=== PATIENT | female | born 1940 | race Caucasian/White ===

== ENCOUNTER 2022-01-14 04:59 | Emergency (ER) | payer MEDICARE, OTHER, BC ==
[~2022-01-14] VITALS: Ht 162.6 cm; Wt 58.1 kg
[2022-01-14] MEDS ORDERED: AMLO10 (05:24)
[2022-01-14] MEDS ORDERED: FURO20 PO (05:25)
[2022-01-14] MEDS ORDERED: Aspir 8181 MG PO (05:25)
[2022-01-14] MEDS ORDERED: LOPE2C PO (05:26)
[2022-01-14] MEDS ORDERED: Isosorbide Mono30 MG PO (05:26)
[2022-01-14] MEDS ORDERED: METF500 PO (05:27)
[2022-01-14] MEDS ORDERED: LOSA50 (05:27)
[2022-01-14] MEDS ORDERED: LOVA40 PO (05:27)
[2022-01-14] MEDS ORDERED: METO50ER (05:28)
[2022-01-14] MEDS ORDERED: PANT40 PO (05:28)
[2022-01-22] MEDS ORDERED: IBUP800 PO (17:07)
[2022-01-26] MEDS ORDERED: CEPH500 PO (15:43)
[2022-05-05] MEDS ORDERED: TRAZ100 PO (04:50)
[2022-06-24] MEDS ORDERED: METF500 PO (08:56)
[2022-06-24] MEDS ORDERED: Robaxin750 MG PO (14:06)
== END 2022-01-14 08:35 | disposition home or self-care (01) ==
LOC: ER 04:59
DX: M25.551 Pain in right hip (principal); G89.29 Other chronic pain; Z88.2 Allergy status to sulfonamides; Z88.8 Allergy status to other drugs, medicaments and biological substances; Z79.82 Long term (current) use of aspirin; Z79.899 Other long term (current) drug therapy; Z79.84 Long term (current) use of oral hypoglycemic drugs
CPT/HCPCS: 51701; 51798; 73502; 99284-25

== ENCOUNTER 2022-01-24 16:09 | Emergency (ER) | payer BC, OTHER ==
[~2022-01-24] VITALS: Ht 157.5 cm; Wt 58.1 kg
[~2022-01-24 16:09] MED LIST: AMLO10; Aspir 8181 MG PO; FURO20 PO; IBUP800 PO; Isosorbide Mono30 MG PO; LOPE2C PO; LOSA50; LOVA40 PO; METF500 PO; METO50ER; PANT40 PO
[2022-01-25] MEDS ORDERED: OXAYDO5 M1 PO (15:37)
[2022-01-26] MEDS ORDERED: CEPH500 PO (15:43)
== END 2022-01-24 18:02 | disposition home or self-care (01) ==
LOC: ER 16:09
DX: M25.512 Pain in left shoulder (principal); Z88.2 Allergy status to sulfonamides; Z88.8 Allergy status to other drugs, medicaments and biological substances; Z88.5 Allergy status to narcotic agent; Z79.899 Other long term (current) drug therapy; Z79.82 Long term (current) use of aspirin; Z79.84 Long term (current) use of oral hypoglycemic drugs; F03.90 Unspecified dementia, unspecified severity, without behavioral disturbance, psychotic disturbance, mood disturbance, and anxiety; E11.9 Type 2 diabetes mellitus without complications; I10 Essential (primary) hypertension; E78.5 Hyperlipidemia, unspecified
CPT/HCPCS: 71046

== ENCOUNTER 2022-01-25 14:12 | Emergency (ER) | payer MEDICARE, OTHER ==
[~2022-01-25] VITALS: Ht 162.6 cm; Wt 58.1 kg
[2022-01-25] MEDS ORDERED: OXAYDO5 M1 PO (15:37)
[2022-01-26] MEDS ORDERED: CEPH500 PO (15:43)
== END 2022-01-25 16:11 | disposition home or self-care (01) ==
LOC: ER 14:12
DX: M75.32 Calcific tendinitis of left shoulder (principal); M75.31 Calcific tendinitis of right shoulder; E11.9 Type 2 diabetes mellitus without complications; F03.90 Unspecified dementia, unspecified severity, without behavioral disturbance, psychotic disturbance, mood disturbance, and anxiety; Z79.84 Long term (current) use of oral hypoglycemic drugs; Z88.2 Allergy status to sulfonamides; Z88.5 Allergy status to narcotic agent; Z88.8 Allergy status to other drugs, medicaments and biological substances; Z79.899 Other long term (current) drug therapy; Z79.82 Long term (current) use of aspirin
CPT/HCPCS: 20610; 73010; 99283-25; J3301

== ENCOUNTER → 2022-03-09 | Outpatient (CLI) | payer MEDICARE, OTHER ==
[~2022-03-09] MED LIST changes: +CEPH500 PO; +OXAYDO5 M1 PO
[2022-03-09 17:17] LABS: BASOPHILS ABSOLUTE AUTO 0.04 K/mm3 (0.00-0.23); BASOPHILS PERCENT AUTO 0 % (0-2); EOSINOPHILS PERCENT AUTO 1 % (0-6); Hematocrit 38.3 % (33.0-51.0); Hemoglobin 12.1 g/dL (11.5-16.0); IMMATURE GRAN ABSOLUTE AUTO 0.02 K/mm3 (0.00-0.10); IMMATURE GRAN PERCENT AUTO 0 % (0-1); LYMPHOCYTES ABSOLUTE AUTO 2.51 K/mm3 (0.84-5.20); LYMPHOCYTES PERCENT AUTO 26 % (21-46); MONOCYTES ABSOLUTE AUTO 0.62 K/mm3 (0.16-1.47); MONOCYTES PERCENT AUTO 7 % (4-13); Mean Corpuscular HGB 30.6 pg (26.0-34.0); Mean Corpuscular HGB Conc 31.6 g/dL (31.5-36.5); Mean Corpuscular Volume 97 fL (80-100); Mean Platelet Volume 9.8 fL (9.1-12.4); NEUTROPHILS PERCENT AUTO 65 % (41-73); Platelet Count 397 K/mm3 (150-400); RDW Coefficient Variation 13.1 % (11.7-14.2); Red Blood Cell Count 3.95 M/mm3 (3.80-5.20); White Blood Cell Count 9.49 K/mm3 (4.00-11.30)
[2022-03-09 17:51] LABS: Albumin, Blood 3.3 g/dL (3.4-5.0); Albumin/Globulin Ratio 0.8 (0.8-1.8); Bilirubin, Total 0.2 mg/dL (0.1-1.0); Calcium, Blood 9.4 mg/dL (8.5-10.1); Creatinine, Blood 0.76 mg/dL (0.40-1.00); Globulin, Blood 4.4 g/dL (2.2-4.0); Percent Saturation 24.2 % (15.0-50.0); Potassium, Blood 4.2 mmol/L (3.5-5.5); Total Protein, Blood 7.7 g/dL (6.4-8.2)
== END | disposition home or self-care (01) ==
LOC: LAB SHORT 15:10 → LAB 15:10
PROVIDERS: Nurse Practitioner Family
DX: K92.2 Gastrointestinal hemorrhage, unspecified (principal); N17.8 Other acute kidney failure
CPT/HCPCS: 80053; 83540; 83550; 85025

== ENCOUNTER 2022-03-19 09:36 | Emergency (ER) | payer MEDICARE, OTHER ==
[~2022-03-19] VITALS: Ht 165.1 cm; Wt 58.1 kg
== END 2022-03-19 10:58 | disposition home or self-care (01) ==
LOC: ER 09:36
DX: T83.031A Leakage of indwelling urethral catheter, initial encounter (principal); F03.90 Unspecified dementia, unspecified severity, without behavioral disturbance, psychotic disturbance, mood disturbance, and anxiety; E11.9 Type 2 diabetes mellitus without complications; F41.9 Anxiety disorder, unspecified; Z79.82 Long term (current) use of aspirin; Z79.84 Long term (current) use of oral hypoglycemic drugs; Z79.899 Other long term (current) drug therapy; Y82.9 Unspecified medical devices associated with adverse incidents; Y92.9 Unspecified place or not applicable
CPT/HCPCS: 51702

== ENCOUNTER 2022-03-27 08:07 | Emergency (ER) | payer MEDICARE, OTHER ==
[~2022-03-27] VITALS: Ht 160 cm; Wt 54.4 kg
[2022-03-27] MEDS ORDERED: AMLODIPINE BESY10 MG PO (08:49)
[2022-03-27] MEDS ORDERED: Aspir 8181 MG PO (08:49)
[2022-03-27] MEDS ORDERED: CENTRUM SILVER1 EAC2 PO (08:50)
[2022-03-27] MEDS ORDERED: FERSU300 PO (08:50)
[2022-03-27] MEDS ORDERED: LOSA50 PO (08:51)
[2022-03-27] MEDS ORDERED: ISOSORBIDE MONO30 MG PO (08:51)
[2022-03-27] MEDS ORDERED: HYDROCODONE-AC1 EA18 PO (08:51)
[2022-03-27] MEDS ORDERED: FUROSEMIDE20 MG PO (08:51)
[2022-03-27] MEDS ORDERED: MAGNESIUM OXID500 MG PO (08:52)
[2022-03-27] MEDS ORDERED: METFORMIN HCL500 M2 PO (08:52)
[2022-03-27] MEDS ORDERED: LOVASTATIN40 MG PO (08:52)
[2022-03-27] MEDS ORDERED: METOPROLOL TART50 M9 PO (08:53)
[2022-03-27] MEDS ORDERED: K-Dur10 MEQ PO (08:53)
[2022-03-27] MEDS ORDERED: PANTOPRAZOLE SO40 M2 PO (08:53)
[2022-03-27 09:16] LABS: BASOPHILS ABSOLUTE AUTO 0.03 K/mm3 (0.00-0.23); BASOPHILS PERCENT AUTO 0 % (0-2); EOSINOPHILS PERCENT AUTO 1 % (0-6); Hematocrit 34.5 % (33.0-51.0); Hemoglobin 11.2 g/dL (11.5-16.0); IMMATURE GRAN ABSOLUTE AUTO 0.02 K/mm3 (0.00-0.10); IMMATURE GRAN PERCENT AUTO 0 % (0-1); LYMPHOCYTES ABSOLUTE AUTO 2.62 K/mm3 (0.84-5.20); LYMPHOCYTES PERCENT AUTO 34 % (21-46); MONOCYTES ABSOLUTE AUTO 0.54 K/mm3 (0.16-1.47); MONOCYTES PERCENT AUTO 7 % (4-13); Mean Corpuscular HGB 31.3 pg (26.0-34.0); Mean Corpuscular HGB Conc 32.5 g/dL (31.5-36.5); Mean Corpuscular Volume 96 fL (80-100); Mean Platelet Volume 9.5 fL (9.1-12.4); NEUTROPHILS PERCENT AUTO 57 % (41-73); Platelet Count 293 K/mm3 (150-400); RDW Standard Deviation 45.7 fL (35.1-46.3); Red Blood Cell Count 3.58 M/mm3 (3.80-5.20); White Blood Cell Count 7.71 K/mm3 (4.00-11.30)
[2022-03-27 09:29] LABS: Albumin/Globulin Ratio 0.8 (0.8-1.8); Bilirubin, Total 0.3 mg/dL (0.1-1.0); Bun/Creatinine Ratio 24.6 (12.0-20.0); Creatinine, Blood 0.85 mg/dL (0.40-1.00); Globulin, Blood 3.6 g/dL (2.2-4.0); Potassium, Blood 4.2 mmol/L (3.5-5.5); Total Protein, Blood 6.6 g/dL (6.4-8.2)
[2022-03-27 09:42] LABS: Source, Urine Clean Catch
[2022-03-27 09:50] LABS: Appearance, Urine Clear (Clear); Bilirubin, Urine Neg (Neg); Blood, Urine 2+ (Neg); Color, Urine Yellow (P-Yellow); Glucose Qualitative, Urine Neg (Neg); Ketones, Urine Neg (Neg); Leukocyte Esterase, Urine 2+ (Neg); Nitrite, Urine Neg (Neg); Protein, Urine Neg (Neg); Specific Gravity, Urine 1.005 (1.003-1.022); Urobilinogen, Urine NORM (Normal)
[2022-03-27 10:00] LABS: Bacteria Few /hpf; Squamous Epithelial Cells Few /hpf (Few)
[2022-03-27] MEDS ORDERED: CEFD300 PO (10:20)
== END 2022-03-27 10:59 | disposition home or self-care (01) ==
LOC: ER 08:07
PROVIDERS: Physician Assistant
DX: N39.0 Urinary tract infection, site not specified (principal); I10 Essential (primary) hypertension; E11.9 Type 2 diabetes mellitus without complications
CPT/HCPCS: 36415; 51702; 72100; 73502; 80053; 81001; 85025; J0696

== ENCOUNTER 2022-09-03 15:52 | Inpatient (IN) | payer MEDICARE, OTHER ==
[~2022-09-03] VITALS: Ht 167.6 cm; Wt 60.4 kg
[~2022-09-03 15:52] MED LIST changes: +AMLODIPINE BESY10 MG PO; +CEFD300 PO; +CENTRUM SILVER1 EAC2 PO; +FERSU300 PO; +FUROSEMIDE20 MG PO; +HYDROCODONE-AC1 EA18 PO; +ISOSORBIDE MONO30 MG PO; +K-Dur10 MEQ PO; +LOSA50 PO; +LOVASTATIN40 MG PO; +MAGNESIUM OXID500 MG PO; +METFORMIN HCL500 M2 PO; +METOPROLOL TART50 M9 PO; +PANTOPRAZOLE SO40 M2 PO; +Robaxin750 MG PO; +TRAZ100 PO
[2022-09-03] MEDS ORDERED: FURO20 PO (16:21)
[2022-09-03] MEDS ORDERED: GABA100 PO (16:22)
[2022-09-03] MEDS ORDERED: K-Dur10 MEQ (16:23)
[2022-09-03] MEDS ORDERED: TRAZ100 PO (16:24)
[2022-09-03 16:31] LABS: BASOPHILS ABSOLUTE AUTO 0.01 K/mm3 (0.00-0.23); BASOPHILS PERCENT AUTO 0 % (0-2); EOSINOPHILS PERCENT AUTO 0 % (0-6); Hematocrit 33.7 % (33.0-51.0); Hemoglobin 11.7 g/dL (11.5-16.0); IMMATURE GRAN ABSOLUTE AUTO 0.04 K/mm3 (0.00-0.10); IMMATURE GRAN PERCENT AUTO 1 % (0-1); LYMPHOCYTES PERCENT AUTO 15 % (21-46); MONOCYTES ABSOLUTE AUTO 0.92 K/mm3 (0.16-1.47); MONOCYTES PERCENT AUTO 11 % (4-13); Mean Corpuscular HGB 31.3 pg (26.0-34.0); Mean Corpuscular HGB Conc 34.7 g/dL (31.5-36.5); Mean Corpuscular Volume 90 fL (80-100); Mean Platelet Volume 9.5 fL (9.1-12.4); NEUTROPHILS ABSOLUTE AUTO 5.89 K/mm3 (1.96-9.15); NEUTROPHILS PERCENT AUTO 73 % (41-73); Platelet Count 366 K/mm3 (150-400); RDW Coefficient Variation 12.9 % (11.7-14.2); RDW Standard Deviation 42.5 fL (35.1-46.3); Red Blood Cell Count 3.74 M/mm3 (3.80-5.20); White Blood Cell Count 8.06 K/mm3 (4.00-11.30)
[2022-09-03 16:41] LABS: Albumin, Blood 3.2 g/dL (3.4-5.0); Albumin/Globulin Ratio 0.8 (0.8-1.8); Bilirubin, Total 0.4 mg/dL (0.1-1.0); Bun/Creatinine Ratio 22.4 (12.0-20.0); Calcium, Blood 8.8 mg/dL (8.5-10.1); Creatinine, Blood 0.63 mg/dL (0.40-1.00); Globulin, Blood 4.2 g/dL (2.2-4.0); Potassium, Blood 4.1 mmol/L (3.5-5.5); Total Protein, Blood 7.4 g/dL (6.4-8.2)
[2022-09-03 17:07] LABS: Influenza A, PCR POSITIVE (NEGATIVE); Influenza B, PCR NEGATIVE (NEGATIVE); Resp Syncytial Virus, PCR NEGATIVE (NEGATIVE); SARS-Cov-2 (COVID-19) PCR, MMC NEGATIVE (NEGATIVE)
[2022-09-03 19:22] LABS: Source, Urine Foley catheter
[2022-09-03 19:28] LABS: Appearance, Urine Clear (Clear); Bilirubin, Urine Neg (Neg); Blood, Urine 4+ (Neg); Color, Urine Yellow (P-Yellow); Glucose Qualitative, Urine Neg (Neg); Ketones, Urine Neg (Neg); Leukocyte Esterase, Urine 1+ (Neg); Nitrite, Urine Neg (Neg); Protein, Urine 3+ (Neg); Urobilinogen, Urine NORM (Normal)
[2022-09-03 19:43] LABS: Bacteria Many /hpf; Renal Epithelial Rare /hpf (0-Rare); Squamous Epithelial Cells Rare /hpf (Few)
--- NOTE | 2022-09-04 05:43 | NUR ---
SHIFT SUMMARY NOC PT ADMIT FROM ED AT 2120 WITH INFLUENZA A AND GEN WEAKNESS, AMS, AND GEN WEAKNESS. PT IS HIGHLY CONFUSED AND DISORIENTED. PT HAS EXCORIATION TO THE SACRAL COCCYX AREA AND BARRIER CREAM AND MEPILEX DRESSING PUT IN PLACE. PICTURE IS IN CHART. PT DEVELOPED A TEMP OF 103.3F IN EARLY AM WELL SPO2 DESAT TO 85% ON RA. PT WAS PUT ON O2 2L/NC AND SPO2 WAS 94%. TYLENOL WAS GIVEN PER EMAR AND PT TEMP CAME DOWN TO 100.4F WILL CONTINUE TO MONITOR. PT WAS UNABLE TO ASSIST WITH ADMISSION INFORMATION. PT IS FROM [facility] AND NO ONE ANSWERED ON MULTIPLE ATTEMPTS. PT'S SON'S NUMBER IS ON WHITE BOARD AND CAN ASSIST WITH PT HX AND RX RECONCILIATION. PT IS CURRENTLY RESTING WITH BED RAILS UP, BED IN LOWEST POSITION, AND CALL LIGHT WITHIN REACH.
[2022-09-04 06:13] LABS: Bun/Creatinine Ratio 25.2 (12.0-20.0); Calcium, Blood 8.8 mg/dL (8.5-10.1); Creatinine, Blood 0.6 mg/dL (0.40-1.00); Potassium, Blood 3.5 mmol/L (3.5-5.5)
--- NOTE | 2022-09-04 18:39 | NUR ---
DAYSHIFT SUMMARY Patient admitted for Influenza/pneumonia, lung sounds diminshed, congested cough. Droplet precautions in place. Vitals stable, afebrile, sats stable on RA. NS infusing continuously, rate reduced to 50mL/hr. Patient able to feed self, MD ordered soft/bite size Ddiet. Patient sleeping comfortably all shift, arouses to voice/touch, hard of hearing.
--- NOTE | 2022-09-05 04:34 | NUR ---
SHIFT SUMMARY 81 YR F ADMITTED ON 09/03/22 FOR INFLUENZA A. FULL CODE. NO ACUTE CHANGES THIS SHIFT. PT HAS SLEPT COMFORTABLY FOR MOST OF THIS SHIFT. IF HER LIGHT IS TURNED OFF SHE WAKES IMMEDIATELY AND YELLS OUT. SHE RESPONDS WELL TO INSTRUCTION AND IS VERY SWEET AND THANKFUL FOR HER CARE. SHE IS VERY HARD OF HEARING SO YOU HAVE TO GET CLOSE TO HEAR FOR HER TO HEAR YOU. SHE TAKES HER PILLS WHOLE WITH WATER AND HAS NS RUNNING @ 50.
[2022-09-05 05:37] LABS: BASOPHILS PERCENT AUTO 0 % (0-2); EOSINOPHILS PERCENT AUTO 0 % (0-6); Hematocrit 33.3 % (33.0-51.0); Hemoglobin 11.4 g/dL (11.5-16.0); IMMATURE GRAN ABSOLUTE AUTO 0.01 K/mm3 (0.00-0.10); IMMATURE GRAN PERCENT AUTO 0 % (0-1); LYMPHOCYTES ABSOLUTE AUTO 0.67 K/mm3 (0.84-5.20); LYMPHOCYTES PERCENT AUTO 13 % (21-46); MONOCYTES ABSOLUTE AUTO 0.13 K/mm3 (0.16-1.47); MONOCYTES PERCENT AUTO 3 % (4-13); Mean Corpuscular HGB 31.3 pg (26.0-34.0); Mean Corpuscular HGB Conc 34.2 g/dL (31.5-36.5); Mean Corpuscular Volume 92 fL (80-100); Mean Platelet Volume 9.5 fL (9.1-12.4); NEUTROPHILS ABSOLUTE AUTO 4.26 K/mm3 (1.96-9.15); NEUTROPHILS PERCENT AUTO 84 % (41-73); Platelet Count 281 K/mm3 (150-400); RDW Coefficient Variation 12.8 % (11.7-14.2); RDW Standard Deviation 43.3 fL (35.1-46.3); Red Blood Cell Count 3.64 M/mm3 (3.80-5.20); White Blood Cell Count 5.07 K/mm3 (4.00-11.30)
[2022-09-05 06:09] LABS: Albumin, Blood 2.5 g/dL (3.4-5.0); Albumin/Globulin Ratio 0.7 (0.8-1.8); Bilirubin, Total 0.3 mg/dL (0.1-1.0); Bun/Creatinine Ratio 32.4 (12.0-20.0); Calcium, Blood 8.9 mg/dL (8.5-10.1); Creatinine, Blood 0.52 mg/dL (0.40-1.00); Globulin, Blood 3.7 g/dL (2.2-4.0); Magnesium, Blood 1.5 mg/dL (1.6-2.4); Phosphorus, Blood 3.3 mg/dL (2.5-4.9); Potassium, Blood 3.8 mmol/L (3.5-5.5); Total Protein, Blood 6.2 g/dL (6.4-8.2)
--- NOTE | 2022-09-05 16:23 | NUR ---
Patient doing well today, weaned off 2L oxygen to RA. Lungs clear, continues to have productive cough. Worked with OT & PT, patient able to transfer via FWW and staff help to chair from bed. Patient very upset with CBG checks, refused lunch time SSI. Provided education on the importance of insulin to help lower CBGs. Patient medically stable to discharge home, facility will accept patient back today. Transportation set up for 1600.
--- NOTE | 2022-09-05 17:11 | NUR ---
Patient left medical unit via wheelchair transport at 1710.
== END 2022-09-05 17:08 | disposition home or self-care (01) | DRG 193 ==
LOC: ER 15:52 → MEDS 15:55
PROVIDERS: Hospitalist; Nurse Practitioner Acute Care; Student in an Organized Health Care Education/Training Program; ADMIT Internal Medicine
DX: J10.1 Influenza due to other identified influenza virus with other respiratory manifestations (principal); G92.8 Other toxic encephalopathy; J96.01 Acute respiratory failure with hypoxia; E87.1 Hypo-osmolality and hyponatremia; N39.0 Urinary tract infection, site not specified; E78.5 Hyperlipidemia, unspecified; I10 Essential (primary) hypertension; Z86.718 Personal history of other venous thrombosis and embolism; I25.10 Atherosclerotic heart disease of native coronary artery without angina pectoris; F03.90 Unspecified dementia, unspecified severity, without behavioral disturbance, psychotic disturbance, mood disturbance, and anxiety; E11.9 Type 2 diabetes mellitus without complications; Z88.8 Allergy status to other drugs, medicaments and biological substances; Z88.2 Allergy status to sulfonamides; Z88.7 Allergy status to serum and vaccine; G89.29 Other chronic pain; F41.0 Panic disorder [episodic paroxysmal anxiety]; Z87.891 Personal history of nicotine dependence; Z79.82 Long term (current) use of aspirin; Z79.899 Other long term (current) drug therapy; Z79.84 Long term (current) use of oral hypoglycemic drugs; E86.0 Dehydration; Z20.822 Contact with and (suspected) exposure to COVID-19
CPT/HCPCS: 0241U; 36415; 51702; 71046; 80048; 80053; 81001; 82947; 83735; 84100; 84145; 85025; 87086; 93005; 93010; 94640; 94664; 94760; 96372; 97110; 97162; 97165; 97530; A9270; G0378; J1650; J2920; J7030

== ENCOUNTER 2022-11-05 07:31 | Emergency (ER) | payer MEDICARE, OTHER ==
[~2022-11-05] VITALS: Ht 157.5 cm; Wt 54.4 kg
[~2022-11-05 07:31] MED LIST changes: +GABA100 PO; +K-Dur10 MEQ
[2022-11-05] MEDS ORDERED: METPRE4DP PO (09:20)
== END 2022-11-05 09:58 | disposition home or self-care (01) ==
LOC: ER 07:31
DX: M54.31 Sciatica, right side (principal); E11.9 Type 2 diabetes mellitus without complications
CPT/HCPCS: 73502; J1170; J7512

== ENCOUNTER 2023-01-01 03:56 | Emergency (ER) | payer MEDICARE, OTHER ==
[~2023-01-01] VITALS: Ht 162.6 cm; Wt 63.5 kg
[~2023-01-01 03:56] MED LIST changes: +METPRE4DP PO
[2023-01-01 04:32] LABS: Source, Urine Foley catheter
[2023-01-01 04:43] LABS: Bilirubin, Urine Neg (Neg); Blood, Urine Neg (Neg); Glucose Qualitative, Urine Neg (Neg); Ketones, Urine Neg (Neg); Leukocyte Esterase, Urine Neg (Neg); Nitrite, Urine Neg (Neg); Protein, Urine 1+ (Neg); Urobilinogen, Urine NORM (Normal)
[2023-01-01 04:44] LABS: Appearance, Urine Clear (Clear); Color, Urine Yellow (P-Yellow)
== END 2023-01-01 05:23 | disposition home or self-care (01) ==
LOC: ER 03:56
PROVIDERS: Student in an Organized Health Care Education/Training Program
DX: T83.021A Displacement of indwelling urethral catheter, initial encounter (principal); Y84.6 Urinary catheterization as the cause of abnormal reaction of the patient, or of later complication, without mention of misadventure at the time of the procedure; E11.9 Type 2 diabetes mellitus without complications; Z88.7 Allergy status to serum and vaccine; Z88.2 Allergy status to sulfonamides; Z88.8 Allergy status to other drugs, medicaments and biological substances; Z79.899 Other long term (current) drug therapy; Z79.84 Long term (current) use of oral hypoglycemic drugs; Z79.82 Long term (current) use of aspirin
CPT/HCPCS: 51702

== ENCOUNTER → 2023-05-30 | Outpatient (CLI) | payer MEDICARE, OTHER ==
[~2023-05-30] MED LIST changes: +DOXY100 PO
[2023-05-30 15:22] LABS: Source, Urine Foley catheter
[2023-05-30 16:20] LABS: Appearance, Urine Clear (Clear); Bilirubin, Urine Neg (Neg); Blood, Urine 2+ (Neg); Color, Urine Yellow (P-Yellow); Glucose Qualitative, Urine Neg (Neg); Ketones, Urine Neg (Neg); Leukocyte Esterase, Urine 1+ (Neg); Nitrite, Urine Neg (Neg); Protein, Urine 3+ (Neg); Specific Gravity, Urine 1.005 (1.003-1.022); Urobilinogen, Urine NORM (Normal)
[2023-05-30 16:45] LABS: Bacteria Mod /hpf; Squamous Epithelial Cells Few /hpf (Few); Transitional Epithelial Cells Rare /hpf (0-Rare); White Blood Cells, Urine 25-50 /hpf (0-5)
== END | disposition home or self-care (01) ==
LOC: LAB 15:20 → LAB SHORT 15:20
PROVIDERS: Nurse Practitioner Family
DX: N39.0 Urinary tract infection, site not specified (principal)
CPT/HCPCS: 81001; 87077; 87086; 87186

== ENCOUNTER → 2023-06-20 | Outpatient (CLI) | payer MEDICARE, OTHER | LOC: LAB SHORT 11:30 → LAB 11:30 | DX: F44.89 Other dissociative and conversion disorders (principal); R82.90 Unspecified abnormal findings in urine | CPT/HCPCS: 87077; 87086; 87186 ==

== ENCOUNTER 2023-09-21 01:53 | Inpatient (IN) | payer MEDICARE, OTHER ==
[~2023-09-21] VITALS: Ht 165.1 cm; Wt 68.0 kg
[2023-09-21 06:34] LABS: BASOPHILS ABSOLUTE AUTO 0.01 K/mm3 (0.00-0.23); BASOPHILS PERCENT AUTO 0 % (0-2); EOSINOPHILS ABSOLUTE AUTO 0.05 K/mm3 (0.00-0.68); EOSINOPHILS PERCENT AUTO 1 % (0-6); Hematocrit 32.3 % (33.0-51.0); Hemoglobin 10.6 g/dL (11.5-16.0); IMMATURE GRAN ABSOLUTE AUTO 0.03 K/mm3 (0.00-0.10); IMMATURE GRAN PERCENT AUTO 0 % (0-1); LYMPHOCYTES ABSOLUTE AUTO 2.35 K/mm3 (0.84-5.20); LYMPHOCYTES PERCENT AUTO 31 % (21-46); MONOCYTES ABSOLUTE AUTO 0.83 K/mm3 (0.16-1.47); MONOCYTES PERCENT AUTO 11 % (4-13); Mean Corpuscular HGB 30.5 pg (26.0-34.0); Mean Corpuscular HGB Conc 32.8 g/dL (31.5-36.5); Mean Corpuscular Volume 93 fL (80-100); Mean Platelet Volume 9.8 fL (9.1-12.4); NEUTROPHILS ABSOLUTE AUTO 4.25 K/mm3 (1.96-9.15); NEUTROPHILS PERCENT AUTO 57 % (41-73); Platelet Count 298 K/mm3 (150-400); RDW Coefficient Variation 12.6 % (11.7-14.2); RDW Standard Deviation 42.9 fL (35.1-46.3); Red Blood Cell Count 3.48 M/mm3 (3.80-5.20); White Blood Cell Count 7.52 K/mm3 (4.00-11.30)
[2023-09-21 06:47] LABS: Calcium, Blood 8.3 mg/dL (8.5-10.1); Creatinine, Blood 0.88 mg/dL (0.40-1.00); Potassium, Blood 3.9 mmol/L (3.5-5.5)
[2023-09-21 08:30] LABS: International Normalized Ratio 1.03; Prothrombin Time Results 10.8 Sec (9.7-11.5)
[2023-09-21] MEDS ORDERED: METO25ER PO (09:51)
[2023-09-21] MEDS ORDERED: HYDROCODONE-AC1 EA10 PO (09:52)
[2023-09-21] MEDS ORDERED: RISPERIDONE M TA PO (09:54)
[2023-09-21] MEDS ORDERED: METF500 PO (11:42)
[2023-09-21 11:52] VITALS: BP 95/42
[2023-09-21 15:17] VITALS: BP 121/58
--- NOTE | 2023-09-21 17:07 | NUR ---
SUMMARY PT ADMITTED FROM THE ER FOR CELLULITIS, PT HAS DEMENTIA AND LIVES AT [facility], PT ABLE TO ANSWER BASIC QUESTIONS AND FOLLOW COMMANDS, ORIENTED PT TO ROOM AND CALL SYSTEM TO THE BEST OF HER ABILITY, SON HAD CAME IN TO VISIT, PT HAS A PRESSURE ULCER TO HER L OUTER ANKLE, REDDENED AREA TO HER R HEEL, AND A PRESSURE ULCER TO HER BUTTOCKS, FOAM BORDERED DRESSING APPLIED TO THE ANKLE, HEEL PROTECTOR TO THE HEEL AND A THICK LAYER OF BARRIER CREAM APPLIED TO THE BUTTOCKS, PT HAS BEEN REPOSITIONED FREQUENTLY, PT C/O PAIN ONLY WHEN REPOSITIONED, IS QUIET WHEN LEFT UNDISTURBED, VSS, WILL CONT TO MONITOR
--- NOTE | 2023-09-21 17:18 | NUR ---
DR TEAGUE WAS NOTIFIED ABOUT THE PRESSURE ULCERS AND HAS SEEN THE PICTURES IN THE CHART
[2023-09-21 19:17] VITALS: BP 117/72
--- NOTE | 2023-09-22 02:03 | NUR ---
INFORMED CHARGE PATIENT WAS ASLEEP DURING HS MEDICATION PASS AND NOT ALERT ENOUGH TO SAFELY TAKE HER MEDS. I DISPOSED OF THOSE MEDICATIONS. HOWEVER THE PATIENT DID AWAKEN AT 0130 HOURS AND BEGIN YELLING OUT. SHE IS CONFUSED AND AGITATED. I DECIDED TO PULL HER MEDICATIONS THAT WOULD ASSIST HER AGITATION AND ATTEMPT TO GIVE THOSE AT THIS TIME. I DID INFORM CHARGE OF THIS. THE PATIENT DID AGREE TO TAKE THOSE MEDS AT THIS TIME. I WILL CONTINUE TO MONITOR. SHE IS NOT REDIRECTABLE AT THIS TIME.
[2023-09-22 02:57] VITALS: BP 121/44
--- NOTE | 2023-09-22 04:15 | NUR ---
SHIFT SUMMARY ADMITTED FOR CELLULITIS. FULL CODE. ANTIB RX ARE SCHEDULED. SCHEDULED ANXIETY AND PAIN MEDICATION GIVEN THIS SHIFT. SEE PREVIOUS NOTES. Q2 TURNS. SHE IS WHEELCHAIR BOUND AT BASELINE. SHE IS CONFUSED. SHE CAN MAKE SMALL REQUESTS BUT SHE DOES NOT FOLLOW INSTRUCTION. SHE IS A&O TO SELF. SHE HAS A PRESSURE ULCER ON HER COCCYX AND LEFT OUTER ANKLE. SHE SLEPT THE FIRST PART OF SHIFT. SEE PREVIOUS NOTES. SHE CALLED OUT FREQUENTLY WHEN SHE WOKE. NOT REDIRECTABLE. ACHS CBG'S. ADA DIET. ON RA. SHE IS INCONTINENT.
[2023-09-22 07:50] VITALS: BP 155/47
[2023-09-22 09:14] LABS: Hemoglobin 10.8 g/dL (11.5-16.0); Mean Corpuscular HGB 30.6 pg (26.0-34.0); Mean Corpuscular HGB Conc 32.7 g/dL (31.5-36.5); Mean Corpuscular Volume 94 fL (80-100); Platelet Count 336 K/mm3 (150-400); RDW Coefficient Variation 12.6 % (11.7-14.2); Red Blood Cell Count 3.53 M/mm3 (3.80-5.20)
[2023-09-22 10:06] LABS: Albumin, Blood 2.3 g/dL (3.4-5.0); Albumin/Globulin Ratio 0.5 (0.8-1.8); Bilirubin, Total 0.2 mg/dL (0.1-1.0); Bun/Creatinine Ratio 25.9 (12.0-20.0); Calcium, Blood 8.4 mg/dL (8.5-10.1); Creatinine, Blood 0.81 mg/dL (0.40-1.00); Globulin, Blood 4.3 g/dL (2.2-4.0); Magnesium, Blood 1.8 mg/dL (1.6-2.4); Phosphorus, Blood 2.5 mg/dL (2.5-4.9); Potassium, Blood 3.5 mmol/L (3.5-5.5); Total Protein, Blood 6.6 g/dL (6.4-8.2)
--- NOTE | 2023-09-22 16:47 | NUR ---
SHIFT SUMMARY A&O X 1. IS PLEASANT & COOPERATIVE WITH ALL CARE. FORGETFUL, [place] & DIRECTABLE. REPOSITIONED Q 2 FOR COMFORT & OFF LOADING FROM HER COCCYX WOUND WHICH HAS A MEPIPLEX. BILAT HEEL PROTECTORS, HEELS KEPT FLOATED ON PILLOWS OFF SURFACE OF BED. IS ABLE TO USE CALL LIGHT, MAKES NEEDS KNOWN. IS ABLE TO EAT MEALS WITH SET UP ASSIST. APPETITE IS GOOD. HAS RESTED QUIETLY THROUGHOUT SHIFT. TAKES MEDS WHOLE WITH H2O. IS FROM [facility].
[2023-09-22 17:40] VITALS: BP 138/58
[2023-09-22 20:34] VITALS: BP 128/41
[2023-09-23 04:56] VITALS: BP 118/53
--- NOTE | 2023-09-23 05:03 | NUR ---
SHIFT SUMMARY NOC PT A/O TO SELF. PLEASANTLY CONFUSED, BUT HIGHLY AGITATED WHEN PERSONAL CARE IS PROVIDED AND TAKES 2-3 NURSING STAFF TO COMPLETE TASKS. PT HAS SACRAL DECUBITUS ULCER THAT HAS MEPILEX DRESSING IN PLACE C/D/I. DR IS SUPPOSE TO INSPECT WOUND TO DECIDE NEXT COURSE OF ACTION. PT HAS BILATERAL HEEL PROTECTORS IN PLACE DUE TO SKIN BREAKDOWN ON BLE, AND EGG CRATE OVER MATTRESS, WELL Q2H REPOSITIONING TO PREVENT FURTHER SKIN BREAKDOWN. PT IS CURRENTLY RESTING WITH BED IN LOWEST POSITION, AND CALL LIGHT WITHIN REACH.
[2023-09-23 07:24] VITALS: BP 140/48
--- NOTE | 2023-09-23 10:47 | NUR ---
MD EXAMED PT'S COCCYX WOUND. ORDERS RECEIVED FOR MEDIHONEY TO BE APPLIED TO WOUND BED AND BARRIER CREAM TO BE APPLIED TO EDGES OF WOUND BID OR OFTEN NEEDED WITH BRIEF CHANGE AND BLANCO CARE.
[2023-09-23 15:38] VITALS: BP 141/60
[2023-09-23 19:06] VITALS: BP 126/54
--- NOTE | 2023-09-23 19:46 | NUR ---
SHIFT SUMMARY A&O X 1, VSS. IS PLEASANT THOUGH BECOMES AGITATED WITH HYGIENE CARE & REPOSITIONING REQUIRING MULTIPLE STAFF TO ACCOMPLISH. DR. TEAGUE IN TO EXAMINE WOUND, NEW ORDERS RECIEVED FOR WOUND CARE USING MEDIHONEY ON WOUND BED AND BARRIER CREAM ON WOUND EDGES. PT IS INCONTINENT OF BOWEL & URINE. WILL LIK[facility] WHEN READY FOR DC.
[2023-09-24 02:07] VITALS: BP 146/59
--- NOTE | 2023-09-24 07:18 | NUR ---
SHIFT SUMMARY NOC PT A/O TO SELF. PLEASANTLY CONFUSED AND MORE COOPERATIVE WITH PERSONAL CARE.NO ACUTE CHANGES TO REPORT. PT SACRAL WOUND IS BEING TREATED WITH MEDIHONEY AND BARRIER CREAM. PT REQUESTED A SNACK DURING MIDDLE OF NIGHT. PT SON WAS IN ROOM RIGHT AFTER SHIFT CHANGE AND REPORTED THAT THE DR INFORMED HIM THAT PT WOULD BE DISCHARGED HOME TODAY TO [facility], BUT UNABLE TO VERIFY DISCHARGE WITH ANY DOCUMENTATION. PT EVENING CBG 243, BUT CNI. PT IS CURRENTLY RESTING WITH BED ALARM ON, BED IN LOWEST POSITION, AND CALL LIGHT WITHIN REACH.
[2023-09-24 08:12] VITALS: BP 149/69
[2023-09-24] MEDS ORDERED: DOXY100 PO (11:54)
[2023-09-24] MEDS ORDERED: AMOCLA875 PO (11:54)
--- NOTE | 2023-09-24 16:10 | NUR ---
LATE ENTRY/DC BACK TO [facility] VIA AMBULANCE GURNEY TRANSFER: 1300: PT BACK TO [facility] WITH ALL PERSONAL BELONGINGS VIA GURNEY TRANSPORT BY [facility] AM[facility]UL[facility]. PIV DC'D WITH CATH TIP INTACT, NO REDNESS OE SWELLING NOTED. DC PKT GIVEN TO TRANSPORT PERSONNEL TO BE GIVEN TO FACILITY STAFF UPON PT'S ARRIVAL.
== END 2023-09-24 13:17 | disposition home or self-care (01) | DRG 603 ==
LOC: ER 01:53 → MEDS 08:12 → SURS 08:12 → MEDS 11:32
PROVIDERS: Emergency Medicine; ADMIT Family Medicine
DX: L03.312 Cellulitis of back [any part except buttock and flank] (principal); L03.115 Cellulitis of right lower limb; F03.C11 Unspecified dementia, severe, with agitation; E87.20 Acidosis, unspecified; N39.0 Urinary tract infection, site not specified; I10 Essential (primary) hypertension; I25.10 Atherosclerotic heart disease of native coronary artery without angina pectoris; E11.9 Type 2 diabetes mellitus without complications; G47.00 Insomnia, unspecified; L89.152 Pressure ulcer of sacral region, stage 2; L89.611 Pressure ulcer of right heel, stage 1; L89.522 Pressure ulcer of left ankle, stage 2; L89.899 Pressure ulcer of other site, unspecified stage; Z88.7 Allergy status to serum and vaccine; Z88.2 Allergy status to sulfonamides; Z88.8 Allergy status to other drugs, medicaments and biological substances; Z79.82 Long term (current) use of aspirin; Z79.52 Long term (current) use of systemic steroids; Z79.4 Long term (current) use of insulin; Z98.1 Arthrodesis status
CPT/HCPCS: 36415; 74177; 80048; 80053; 82947; 83605; 83735; 84100; 85025; 85027; 85610; 85730; 96361; 96365; 96372-59; 99285-25; A9270; J0696; J1630; J1650; J7030; Q9967

== ENCOUNTER 2023-10-17 20:45 | Inpatient (IN) | payer MEDICARE, OTHER ==
[~2023-10-17] VITALS: Ht 165.1 cm; Wt 70.2 kg
[~2023-10-17 20:45] MED LIST changes: +AMOCLA875 PO; +HYDROCODONE-AC1 EA10 PO; +METO25ER PO; +RISPERIDONE M TA PO
[2023-10-17 22:09] LABS: BASOPHILS ABSOLUTE AUTO 0.02 K/mm3 (0.00-0.23); BASOPHILS PERCENT AUTO 0 % (0-2); EOSINOPHILS ABSOLUTE AUTO 0.22 K/mm3 (0.00-0.68); EOSINOPHILS PERCENT AUTO 2 % (0-6); Hematocrit 33.1 % (33.0-51.0); Hemoglobin 10.8 g/dL (11.5-16.0); IMMATURE GRAN ABSOLUTE AUTO 0.05 K/mm3 (0.00-0.10); IMMATURE GRAN PERCENT AUTO 1 % (0-1); LYMPHOCYTES ABSOLUTE AUTO 2.24 K/mm3 (0.84-5.20); LYMPHOCYTES PERCENT AUTO 23 % (21-46); MONOCYTES ABSOLUTE AUTO 1.04 K/mm3 (0.16-1.47); MONOCYTES PERCENT AUTO 11 % (4-13); Mean Corpuscular HGB 30.2 pg (26.0-34.0); Mean Corpuscular HGB Conc 32.6 g/dL (31.5-36.5); Mean Corpuscular Volume 93 fL (80-100); Mean Platelet Volume 9.6 fL (9.1-12.4); NEUTROPHILS ABSOLUTE AUTO 6.04 K/mm3 (1.96-9.15); NEUTROPHILS PERCENT AUTO 63 % (41-73); Platelet Count 291 K/mm3 (150-400); RDW Coefficient Variation 12.7 % (11.7-14.2); RDW Standard Deviation 43.2 fL (35.1-46.3); Red Blood Cell Count 3.58 M/mm3 (3.80-5.20); White Blood Cell Count 9.61 K/mm3 (4.00-11.30)
[2023-10-17 22:33] LABS: Albumin, Blood 2.2 g/dL (3.4-5.0); Albumin/Globulin Ratio 0.5 (0.8-1.8); Bilirubin, Total 0.3 mg/dL (0.1-1.0); Bun/Creatinine Ratio 20.2 (12.0-20.0); Calcium, Blood 8.1 mg/dL (8.5-10.1); Creatinine, Blood 1.14 mg/dL (0.40-1.00); Globulin, Blood 4.8 g/dL (2.2-4.0); Potassium, Blood 3.5 mmol/L (3.5-5.5)
[2023-10-17 23:11] LABS: C-Reactive Protein, High Sens. 39.7 mg/dL (0.000-3.000)
[2023-10-18 00:32] LABS: Source, Urine Clean Catch
[2023-10-18 00:39] LABS: Bilirubin, Urine Neg (Neg); Blood, Urine 2+ (Neg); Glucose Qualitative, Urine 3+ (Neg); Ketones, Urine Neg (Neg); Leukocyte Esterase, Urine 3+ (Neg); Nitrite, Urine Pos (Neg); Protein, Urine 2+ (Neg); Urobilinogen, Urine NORM (Normal)
[2023-10-18 01:18] LABS: Appearance, Urine Turbid (Clear); Color, Urine Yellow (P-Yellow)
[2023-10-18 01:21] LABS: Amorphous Light (0-Heavy); Bacteria Many /hpf; Red Blood Cells, Urine 0-2 /hpf (0-2); Squamous Epithelial Cells Mod /hpf (Few); White Blood Cells, Urine TNTC /hpf (0-5); Yeast/Fungi Urine Few /hpf
[2023-10-18 04:42] VITALS: BP 166/57
[2023-10-18 05:11] LABS: BASOPHILS ABSOLUTE AUTO 0.02 K/mm3 (0.00-0.23); BASOPHILS PERCENT AUTO 0 % (0-2); EOSINOPHILS ABSOLUTE AUTO 0.29 K/mm3 (0.00-0.68); EOSINOPHILS PERCENT AUTO 3 % (0-6); Hematocrit 33.4 % (33.0-51.0); Hemoglobin 10.8 g/dL (11.5-16.0); IMMATURE GRAN ABSOLUTE AUTO 0.04 K/mm3 (0.00-0.10); IMMATURE GRAN PERCENT AUTO 1 % (0-1); LYMPHOCYTES PERCENT AUTO 28 % (21-46); MONOCYTES ABSOLUTE AUTO 0.85 K/mm3 (0.16-1.47); MONOCYTES PERCENT AUTO 10 % (4-13); Mean Corpuscular HGB 29.4 pg (26.0-34.0); Mean Corpuscular HGB Conc 32.3 g/dL (31.5-36.5); Mean Corpuscular Volume 91 fL (80-100); Mean Platelet Volume 9.3 fL (9.1-12.4); NEUTROPHILS ABSOLUTE AUTO 4.97 K/mm3 (1.96-9.15); NEUTROPHILS PERCENT AUTO 58 % (41-73); Platelet Count 286 K/mm3 (150-400); RDW Coefficient Variation 12.7 % (11.7-14.2); RDW Standard Deviation 42.1 fL (35.1-46.3); Red Blood Cell Count 3.67 M/mm3 (3.80-5.20); White Blood Cell Count 8.57 K/mm3 (4.00-11.30)
[2023-10-18 05:57] LABS: Albumin, Blood 2.1 g/dL (3.4-5.0); Albumin/Globulin Ratio 0.5 (0.8-1.8); Bilirubin, Total 0.3 mg/dL (0.1-1.0); Bun/Creatinine Ratio 17.1 (12.0-20.0); Calcium, Blood 8.3 mg/dL (8.5-10.1); Creatinine, Blood 1.11 mg/dL (0.40-1.00); Globulin, Blood 4.5 g/dL (2.2-4.0); Potassium, Blood 3.5 mmol/L (3.5-5.5); Total Protein, Blood 6.6 g/dL (6.4-8.2)
--- NOTE | 2023-10-18 07:35 | NUR ---
SHIFT SUMMARY PT ARRIVED FROM ED AT 0430. PT ALERT TO SELF. PT'S R HIP VERY PAINFUL WITH MOVEMENT. MEDICATED PER EMAR. PT SOMNOLENT. DR DAN AT BEDSIDE TO ASSESS PRESSURE ULCERS ON PT'S BUTTOCKS. FOAM DRESSINGS PLACED ON LEFT BUTTOCKS, RIGHT HIP, AND HEAL PROTECTORS PLACED ON BALERERAL FEET. PICTURES IN CHART. ABX INFUSED. BED ALARM ON. BED IN LOWEST POSITION AND CALL LIGHT IN REACH.
[2023-10-18 07:57] VITALS: BP 170/55
--- NOTE | 2023-10-18 08:24 | NUR ---
assumed care of pt- Bedside report completed with night RN. Pt in bed sleeping soundly no s&s of distress. Face slack and relaxed. On morning assessment, pt attends were noted to be wet. Make Up Operator assisted to change the pt attends. She cried out in pain durring the move, but did not open her eyes or follow directions. After reposition pt dropped back off to sleep and appears relaxed at this time. Very lethargic, not giving fentanyl d/t lethargy.
--- NOTE | 2023-10-18 17:35 | NUR ---
SHIFT SUMMARY- PT ALERT TO SELF AT TIMES, SOMETIMES SHE DOES NOT RESPOND TO STAFF AT ALL. PT SWITCHED TO COMFORT CARE TODAY. PLAN IS HOSPICE ON DISCHARGE. PT NOTABLY UNCOMFORTABLE FOR REPOSITIONS, INCONTINENT OF URINE, HER URINE GOES TO THE BACK, SO WHEN HER ATTENDS SEEM DRY THEY ARE NOT USUALLY DRY. WILL PRE MEDICATE FOR NEXT REPOSITION AND CHANGE.
--- NOTE | 2023-10-19 05:20 | NUR ---
SHIFT SUMMARY PT ALERT TO SELF. RESPONDS TO STIMULI AND AT TIMES WILL SPEAK IN FULL SENTANCES WHEN ASKED QUESTIONS. PT SLEPT MOST OF THE NIGHT. MEDICATED BEFORE BRIEF CHANGES. TURNED Q2 HRS. PT RESISTS TURNING WITH ATTENDS CHANGE AND WILL CRY OUT STATING, "IT HURTS" REPEATEDLY. EXPLAINED TO PT NEED FOR CHANGE AND ASSURED HER WE WOULD MAKE HER WARM AND COMFORTABLE AFTER. NO ACUTE CHANGES. BED ALARM ON. CALM MUSIC PLAYING. BED IN LOWEST POSITION AND CALL LIGHT NEAR PT.
--- NOTE | 2023-10-19 09:58 | NUR ---
Spiritual care visit conducted. Patient is resting and awakens slightly, but only enough to acknowledge my presence and agree to prayer which I gladly supplied. Patient nods in agreement following the prayer and then returns to sleeping. I will continue to remain avialable to patient and family.
--- NOTE | 2023-10-19 13:18 | NUR ---
PT APPEARS TO BE RESTING AND IN NO APPARENT DISCOMFORT. IT IS TIME FOR REPOSITION GENTLY APPLIED LOTION TO PT FEET, WITH SLIGHT MOVEMENT OF THE LEG SHE BAGAN TO CRY OUT IN PAIN. MAEDICATED PER EMAR FOR PAIN PRIOR TO REPOSITION.
--- NOTE | 2023-10-19 20:14 | NUR ---
SHIFT SUMMARY- PT IS ON COMFORT CARE. PAIN MANAGEMENT HAS BEEN AN ISSUE. PREMEDICATING PT FOR PAIN WITH 10MG ROXANOL SEEMS TO HAVE HELPED, ALTHOUGH THE DAY PROGRESSED HER PAIN SEEEMED TO WORSEN. INCREASED THE DOSE TO 15MG FOR BETTER PAIN MANAGEMENT, CALLED PALLIATIVE CARE FOR SUGGESTIONS. THEY RECOMENDED TORADOL, WHICH DID NOT SEEM TO HELP WHEN GIVEN EARLIER, SEEMED TO PROVIDE MORE RELIEF THIS TIME. PT WAS ABLE TO BE REPOSITIONED AND CHANGED AFTER THAT. SHE DOES CRY OUT WHEN BEING ROLLED, HOWEVER THIS LAST TIME SEEMED MORE FEAR AND ANXIETY RATHER THAN PAIN. PASSED ON TO NIGHT RN IN REPORT THAT CRUSHING SOME ATIVAN WITH THE NEXT PRE MEDICATION OF ROXANOL MAY PROVIDE THE PT BETTER COMFORT. BEDSIDE REPORT COMPLETED, PT APPEARS TO BE RESTING COMFORTABLY AT THE TIME OF BEDSIDE REPORT.
--- NOTE | 2023-10-20 05:55 | NUR ---
SHIFT SUMMERY, PT RESTED IN BED, PT SEEMS SOMEWHAT ANXIOUS. PT MEDICATED WHEN ABOUT TO CHECK PT FOR DEPENDS CHANGE OR TO MOVE PT. EVEN WITH PT HAVING SEVERAL MEDS ON BOARD BRIGITTE MOVEMENT OR ATTEMPT TOMOVE PT IS EXSTREMLY PAINFULL.PT NOW RESTING IN BED PILLOWS AROUND PT TO PREVENT SKIN BREAK DOWM.
[2023-10-20] MEDS ORDERED: TYLENOL PR (11:18)
[2023-10-20] MEDS ORDERED: LORA1 PO (11:20)
[2023-10-20] MEDS ORDERED: MICONAZOLE TOP (11:22)
[2023-10-20] MEDS ORDERED: MORP20L SL (11:25)
--- NOTE | 2023-10-20 11:27 | NUR ---
PT WAS PICKED UP AT 1105 VIA AMBULANCE TO BE TAKEN TO [facility]. HOSPICE TO TAKE OVER CARE. PT TREATED FOR PAIN PRIOR TO TRANSPORT. PT CALLED OUT A BIT BEING CHANGED. NO PERSONAL BELONGINGS. IV REMOVED PRIOR TO DISCHARGE.
== END 2023-10-20 11:05 | disposition hospice, home (50) | DRG 602 ==
LOC: ER 20:45 → MEDS 10-18 03:44 → ENPENDDIS 10-20 09:07 → MEDS 10-20 11:05
PROVIDERS: Emergency Medicine; Student in an Organized Health Care Education/Training Program; ADMIT Internal Medicine
DX: L03.115 Cellulitis of right lower limb (principal); G92.8 Other toxic encephalopathy; N17.9 Acute kidney failure, unspecified; E87.20 Acidosis, unspecified; Z88.2 Allergy status to sulfonamides; Z88.7 Allergy status to serum and vaccine; Z88.8 Allergy status to other drugs, medicaments and biological substances; F03.90 Unspecified dementia, unspecified severity, without behavioral disturbance, psychotic disturbance, mood disturbance, and anxiety; F41.9 Anxiety disorder, unspecified; L89.150 Pressure ulcer of sacral region, unstageable; M54.9 Dorsalgia, unspecified; G89.29 Other chronic pain; E11.621 Type 2 diabetes mellitus with foot ulcer; I10 Essential (primary) hypertension; E78.5 Hyperlipidemia, unspecified; I25.2 Old myocardial infarction; G47.00 Insomnia, unspecified; Z99.3 Dependence on wheelchair; Z98.1 Arthrodesis status; Z98.890 Other specified postprocedural states; Z86.19 Personal history of other infectious and parasitic diseases; Z79.891 Long term (current) use of opiate analgesic; Z79.84 Long term (current) use of oral hypoglycemic drugs; Z79.82 Long term (current) use of aspirin; Z79.899 Other long term (current) drug therapy
CPT/HCPCS: 36415; 72193; 80053; 81001; 83036; 83605; 85025; 86141; 87040; 87077; 87086; 87186; 96365; 99285-25; A9270; J0692; J0696; J1815; J1885; J3010; J3370; J7030; J7050; Q9967